=== PATIENT | male | born 2005 | race Caucasian/White ===

== ENCOUNTER 2024-08-24 19:23 | Emergency (ER) | payer OTHER ==
[2024-08-24] MEDS ORDERED: Lorazepam 1 MG TAB ONE (20:01)
[2024-08-24] MEDS ORDERED: Meclizine HCl 25 MG TAB ONE (20:01)
== END 2024-08-24 22:13 | disposition home or self-care (01) ==
LOC: BURERS 19:23
DX: R42 Dizziness and giddiness (principal); R06.4 Hyperventilation; R29.700 NIHSS score 0; F17.210 Nicotine dependence, cigarettes, uncomplicated
CPT/HCPCS: 71045; 93005